=== PATIENT | female | born 1950 ===

== ENCOUNTER 2018-07-12 22:41 | Inpatient (IN) | payer OTHER ==
--- NOTE | 2018-07-12 23:03 | ED ---
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 Son is speaking for pt. Pt understands Cypriot. Around 2099, pt and her son went for a walk. They returned home, and she stated she didn't feel well. Associated sx: palpitations, dyspnea. Denies SOB, nausea, diaphoresis. According to the son, last January, pt didnt feel well and the next day, she had a TIA. Pt recently moved to [place]. She has not been diagnosed with an arrhythmia prior, aside from an episode in [place], but was not diagnosed. Pert PMHx: HTN, TIA. Medications discussed. Took baby aspirin today. - History of Current Complaint Chief Complaint: EDChestPainROMI Time Seen by Provider: 07/12/18 22:53 Hx Obtained From: Patient, Family/Mortgage Funder - son Onset/Duration: Started Hours Ago, Still Present Timing: Constant Initial Severity: Moderate Current Severity: Moderate Pain Intensity: 5 Pain Scale Used: 0-10 Numeric Associated Signs and Symptoms: Positive: Palpitations, Other: - pos: dyspnea. Negative: Shortness of Breath, Diaphoresis, Nausea - Allergy/Home Medications Allergies/Adverse Reactions: Allergies Allergy/AdvReac Type Severity Reaction Status Date / Time metronidazole [From Flagyl] Allergy Unknown Verified 07/12/18 22:59 Reaction Details niacin Allergy Flushing Verified 07/12/18 22:59 PMH/Surg Hx/FS Hx/Imm Hx Previously Healthy: No Cardiovascular History: Reports: Hx Hypertension Neurological History: Reports: Hx Transient Ischemic Attacks (TIA) Infectious Disease History: No Infectious Disease History: Denies: Traveled Outside the [place] in Last 30 Days - Social History Occupation: Retired Lives: With Family Review of Systems Negative: Skin Diaphoresis Positive: Palpitations, Chest Pain Positive: Other - pos: dyspnea. Negative: Shortness Of Breath Negative: Nausea All Other Systems Reviewed And Are Negative: Yes Physical Exam - Summary Physical Exam Summary: VITAL SIGNS: Reviewed. GENERAL: Patient is a well-developed and nourished MALE who is lying comfortable in the stretcher. Patient is not in any acute respiratory distress. HEAD AND FACE: No signs of trauma. No ecchymosis, hematomas or skull depressions. No sinus tenderness. EYES: PERRLA, EOMI x 2, No injected conjunctiva, no nystagmus. EARS: Hearing grossly intact. Ear canals and tympanic membranes are within normal limits. MOUTH: Oropharynx within normal limits. NECK: Supple, trachea is midline, no adenopathy, no JVD, no carotid bruit, no c- spine tenderness, neck with full ROM. CHEST: Symmetric, no tenderness at palpation LUNGS: Clear to auscultation bilaterally. No wheezing or crackles. CVS: Irregular tachycardia, S1 and S2 present, no murmurs or gallops appreciated. ABDOMEN: Soft, non-tender. No signs of distention. No rebound no guarding, and no masses palpated. Bowel sounds are normal. EXTREMITIES: FROM in all major joints, no edema, no cyanosis or clubbing. NEURO: Alert and oriented x 3. No acute neurological deficits. Speech is normal and follows commands. SKIN: Dry and warm Triage Information Reviewed: Yes Vital Signs On Initial Exam: Initial Vitals Temp Pulse Resp BP Pulse Ox 97.3 F 102 16 141/85 97 07/12/18 22:54 07/12/18 22:54 07/12/18 22:54 07/12/18 22:54 07/12/18 22:54 Vital Signs Reviewed: Yes Diagnostics - Vital Signs Vital Signs Temp Pulse Resp BP Pulse Ox 07/12/18 22:54 97.3 F 102 16 141/85 97 - Laboratory Result Diagrams: 07/12/18 23:28 07/12/18 23:29 Lab Statement: Any lab studies that have been ordered have been reviewed, and results considered in the medical decision making process. - Radiology CXR Xray Interpretation: No Acute Changes - No acute process. Pending official report. Radiology Interpretation Completed By: ED Physician - EKG 2247 Cardiac Rate: Other Rate - 122bpm EKG Rhythm: Atrial Fibrillation EKG Interpretation: LVH strain, diffuse ST depression EKG Comparison: Other - No prev available for comparison. 01:49 Cardiac Rate: NL - 72 bpm EKG Rhythm: Sinus Rhythm EKG Interpretation: 1st degree AV block, Q-waves in V1, V2. 00:09 Cardiac Rate: NL - 72 bpm EKG Rhythm: Sinus Rhythm EKG Interpretation: 1st degree AV block, Q-waves in V1, V2. Re-Evaluation - Re-Evaluation 1 Re-Evaluation Time: 00:05 Change: Improved Comment: Pt is in sinus rhythm. Chest Pain Course/Dx - Course Course Of Treatment: Pt is a 67 y/o F with PMHx: TIA, HTN, presenting with CP onset approx two hours ago, palpitations, dypsnea. Son is speaking for pt. Pt understands Cypriot. Medications discussed. Took baby aspirin today. Initial EKG shows afib. Repeat EKG at 00:09 shows SR at 72bpm, first degree AV block, Q- waves in V1, V2. CXR is unremarkable. Hospitalist paged at 0012. Consulted with Dr. House, hospitalist, who will admit pt. - Diagnoses Provider Diagnoses: Chest pain, Paroxysmal A-fib - Provider Notifications Discussed Care Of Patient With: Meaghan House - hospitalist Time Discussed With Above Provider: 01:57 Instructed by Provider To: Admit As Inpatient Discharge - Sign-Out/Discharge Documenting (check all that apply): Patient Departure - ADM - Discharge Plan Disposition: ADMITTED TO [facility] Referrals: Karlene Bush MD [Primary Care Provider] - - Attestation Statements Document Initiated by Scribe: Yes Documenting Scribe: Jeff Garza Provider For Whom Scribe is Documenting (Include Credential): Dr. Chelly Murphy MD Scribe Attestation: I, Jeff Garza, scribed for Dr. Chelly Murphy MD on 07/13/18 at 0157.
[2018-07-12] MEDS ORDERED: Metoprolol Tartrate IV* 1 MG/ML 5 ML VIAL IV PRN (23:21)
--- OUTSIDE RECORDS SUMMARY | 2018-07-12 23:28 | XMS REPORT ---
:1950 External Reference #:[id number] Author Organization [employer] Address [address] [place] [address] [place] [address] Phone [phone] Care Team Providers Name Role Phone Karlene Bush MD Primary Care Physician Unavailable Payers Type Date Identification Numbers Payment Provider Subscriber Commercial Policy Number: [id number] Denis Oscar PayID: [id number] [address] [place] [phone] Problems Date Description Provider Status Onset: 01/12/2018 History of ischemic stroke without Karlene Bush M.D. Active residual deficits Onset: 06/15/2018 Essential hypertension Karlene Bush M.D. Active Onset: 06/15/2018 Type 2 diabetes mellitus Karlene Bush M.D. Active Onset: 06/15/2018 Hyperlipidemia Karlene Bush M.D. Active Family History Date Family Member(s) Problem(s) Comments Children 4 Siblings 7 DM Social History Type Date Description Comments Marital Status Lives With Family Occupation Homemaker Cigarette Use Never Smoked Cigarettes Smoking Patient has never smoked Allergies, Adverse Reactions, Alerts Date Description Reaction Status Severity Comments 06/15/2018 Niacin hypertension active 06/15/2018 Flagyl unknown active 06/15/2018 Metformin muscle aches active Medications Medication Date Status Form Strength Qnty SIG Indications Ordering Provider Nifedipine 06/15 Active Capsules 20mg 180ca take one ps capsule bid Halie Bush Metformin HCL 06/15 Active Tablets ER 500mg 90tab 1 by mouth Karlene ER (Osm) 24HR s every day Halie Bush Shingrix 06/15 Active Suspension 50mcg 1unit intramuscular Karlene /2017 Rec s x 1 then florentin Bush in 4 M.D. months Losartan Active Tablets 50-12.5mg 90tab 1 by mouth Karlene Potassium/Hyd /0000 s every am and audelia Bushlorothiaz 1/2 in the M.D. tanesha evening Aspirin 81 Active Chewtabs 81mg 1 by mouth Unknown Low Dose /0000 every day Atorvastatin Active Tablets 80mg 90tab 1 by mouth Karlene Calcium /0000 s every day Halie Bush Plavix Active Tablets 75mg 90tab 1 by mouth Karlene /0000 s every day Halie Bush Calcium Active Tablets 500-125mg 1 by mouth Unknown 500/Vitamin D /0000 -Unit twice a day Metformin HCL Hx Tablets 250mg 1 by mouth a Unknown / day - 06/15 Vital Signs Date Vital Result Comment 06/15/2018 Height 57 inches 4'9" Weight 132.00 lb Heart Rate 74 /min BP Systolic Sitting 124 mmHg BP Diastolic Sitting 78 mmHg O2 % BldC Oximetry 95 % BMI (Body Mass Index) 28.6 kg/m2 Results Description No Information Procedures Description No Information Plan of Care Future Appointment(s):10/25/2018 8:30 am - Karlene Bush M.D. at [facility] Internal Medicine - Xbfdztpep81/11/2018 - Karlene Bush M.D.E11.9 Type 2 diabetes mellitus without complicationsNew Labs:Urine Microalbumin RandomComments:You are meeting goal for blood sugar control. Changes to medications are indicated. A yearly nutrition visit is available to all diabetics.Referral:Giovanni Mistry MD, OphthalmologyFollow up:4 monthsRecommendations:See your plasma processing technician every year. It is OK to go every 2 years if he finds no retinal damage from diabetes. Ask your plasma processing technician to communicate his findings to us. See a quality control expert every 6 months if you have numbness in your feet or a history of foot ulcers.Z86.73 Prsnl hx of TIA (TIA), and cereb infrc w/o resid deficitsReferral:Sylvie Pride MD, [id number] Essential (primary) hypertensionNew Labs:Comp Metabolic Panel
--- OUTSIDE RECORDS SUMMARY | 2018-07-12 23:28 | XMS REPORT ---
:1950 External Reference #:[id number] Author Organization [employer] Address [address] [place] [place] [address] Phone [phone] Care Team Providers Name Role Phone Karlene Bush MD Primary Care Physician Unavailable Payers Type Date Identification Numbers Payment Provider Subscriber Commercial Policy Number: [id number] Denis Oscar PayID: [id number] [address] [place] [phone] Problems Date Description Provider Status Onset: 01/12/2018 [...] Description No Information Plan of Care Future Appointment(s):10/18/2018 8:10 am - Karlene Bush M.D. at [facility] Internal Medicine - Ecfxschrv89/11/2018 - Karlene Bush M.D.E11.9 Type 2 diabetes mellitus without complicationsNew Labs:Urine Microalbumin RandomComments:You are meeting goal for blood sugar control. Changes to medications are indicated. A yearly nutrition visit is available to all diabetics.Referral:Giovanni Mistry MD, OphthalmologyFollow up:4 monthsRecommendations:See your shore working supervisor every year. It is OK to go every 2 years if he finds no retinal damage from diabetes. Ask your shore working supervisor to communicate his findings to us. See a transmissions systems operator every 6 months if you have numbness in your feet or a history of foot ulcers.Z86.73 Prsnl hx of TIA (TIA), and cereb infrc w/o resid deficitsReferral:Sylvie Pride MD, [id number] Essential (primary) hypertensionNew Labs:Comp Metabolic Panel
--- OUTSIDE RECORDS SUMMARY | 2018-07-12 23:28 | XMS REPORT ---
:1950 External Reference #:[id number] Author Organization [employer] Address [address] [place] [address] Phone [phone] Care Team Providers Name Role Phone Karlene Bush MD Primary Care Physician Unavailable Payers Type Date Identification Numbers Payment Provider Subscriber Commercial Policy Number: [id number] Denis Oscar PayID: [id number] [address] [place] [phone] Problems Date Description Provider Status Onset: 01/12/2018 [...] Description No Information Plan of Care Future Appointment(s):09/22/2018 8:30 am - Karlene Bush M.D. at [facility] Internal Medicine - Xpzsgzlee48/11/2018 - Karlene Bush M.D.E11.9 Type 2 diabetes mellitus without complicationsNew Labs:Urine Microalbumin RandomComments:You are meeting goal for blood sugar control. Changes to medications are indicated. A yearly nutrition visit is available to all diabetics.Referral:Giovanni Mistry MD, OphthalmologyFollow up:4 monthsRecommendations:See your intake specialist every year. It is OK to go every 2 years if he finds no retinal damage from diabetes. Ask your intake specialist to communicate his findings to us. See a electrician apprentice powerhouse every 6 months if you have numbness in your feet or a history of foot ulcers.Z86.73 Prsnl hx of TIA (TIA), and cereb infrc w/o resid deficitsReferral:Sylvie Pride MD, [id number] Essential (primary) hypertensionNew Labs:Comp Metabolic Panel
[2018-07-12 23:40] LABS: ABS Basophils 0.1 10^3/ul (0-0.2); ABS Eosinophils 0.4 10^3/ul (0-0.6); ABS Lymphocytes 3.5 10^3/ul (1.0-4.8); ABS Monocytes 0.6 10^3/ul (0-0.8); ABS Neutrophils 4.1 10^3/ul (1.5-7.7); ABS Nucleated RBC 0 10^3/ul; Eosinophil % 4.9 % (0-6); Hematocrit 39 % (35-47); Hemoglobin 13.4 g/dl (12.0-16.0); Lymphocyte % 40.7 % (25-47); Mean Corpuscular HGB Conc 34 g/dl (31-36); Mean Corpuscular Hemoglobin 30 pg (27-31); Mean Corpuscular Volume 87 fL (80-97); Mean Platelet Volume 9.3 um3 (7.4-10.4); Nucleated Red Blood Cells % 0.1; Platelet Count 287 10^3/ul (150-450); Red Blood Count 4.49 10^6/ul (4.00-5.40); Red Cell Distribution Width 14 % (10.5-15); White Blood Count 8.7 10^3/ul (3.5-10.8)
[2018-07-12] MEDS: Aspirin 81 mg CHEW TAB* 81 MG TAB.CHEW PO SCH (23:41)
[2018-07-12 23:48] LABS: INR 0.99 (0.77-1.02)
[2018-07-12 23:54] LABS: EGFR Non-African American 84.6 (>60)
[2018-07-13] MEDS ORDERED: Potassium Chloride LIQUID* 20 MEQ PACKET PO ONE (00:07)
[2018-07-13] MEDS ORDERED: Dextrose 50% Syringe 50 ML* 25 GM/50 ML SYRINGE IV PUSH PRN (04:33)
[2018-07-13 06:37] LABS: ABS Basophils 0.1 10^3/ul (0-0.2); ABS Eosinophils 0.3 10^3/ul (0-0.6); ABS Lymphocytes 3.2 10^3/ul (1.0-4.8); ABS Monocytes 0.6 10^3/ul (0-0.8); ABS Neutrophils 4.6 10^3/ul (1.5-7.7); ABS Nucleated RBC 0 10^3/ul; Eosinophil % 3.9 % (0-6); Hematocrit 35 % (35-47); Lymphocyte % 36.4 % (25-47); Mean Corpuscular HGB Conc 34 g/dl (31-36); Mean Corpuscular Hemoglobin 30 pg (27-31); Mean Corpuscular Volume 87 fL (80-97); Mean Platelet Volume 9.4 um3 (7.4-10.4); Nucleated Red Blood Cells % 0.1; Platelet Count 264 10^3/ul (150-450); Red Blood Count 4.08 10^6/ul (4.00-5.40); Red Cell Distribution Width 14 % (10.5-15); White Blood Count 8.8 10^3/ul (3.5-10.8)
--- NOTE | 2018-07-13 07:54 | RAD ---
HISTORY: CP COMPARISONS: None VIEWS: 1: frontal AP view of the chest at 11:35 PM FINDINGS: LINES AND TUBES: None. CARDIOMEDIASTINAL SILHOUETTE: The aorta is tortuous. The cardiomediastinal silhouette is otherwise normal for portable technique. PLEURA: The costophrenic angles are sharp. No pleural abnormalities are noted. LUNG PARENCHYMA: The lungs are clear. ABDOMEN: The upper abdomen is clear. There is no subphrenic gas. BONES AND SOFT TISSUES: Degenerative changes are noted of the right shoulder. IMPRESSION: NO ACTIVE CARDIOPULMONARY DISEASE. R0
--- NOTE | 2018-07-13 08:15 | ADMNOTE ---
Subjective Date of Service: 07/13/18 Interval History: hpi this is a 67 yr old female with hx of paf on asa/plavix presented to er with c/o of palpiation sudden onset with associated sob at 945 pm. pt was found to be in rapid a fib with flipped t wave due to fast hr---> got lopressor 5 mg iv times one ---> converted to sinus/ flipped t disappeared. pt was found later on the moniter multiples times to be in asystole mode but she was talking to me. pt was later found to have progressive pulse on the moniter which also documented asystole while she was alive and talking ---> cardio called in am no further lopressor or cardiazem ordered sbp wnl she recently moved from [facility] had a cardiac dr in [facility] but only has a pcp here after relocation ( no cardio locally ) Family History: Findings - both grand parents + htn Social History: Findings - no etoh no cig walks with a andrey comes from home lives with family Past Medical History: Findings - phx htn type ii dm on metformin ( not sure dose or er or not ) paf hyperlipidemia pshx marysol/oob b/l knee orif 2014 Review of Systems - Measurements Intake and Output: Intake and Output Last 24 Hours 07/11/18 07/12/18 07/13/18 07/14/18 06:59 06:59 06:59 06:59 Intake Total 0 Output Total 0 Balance 0 Weight 129 lb 4.8 oz Intake: Oral 0 Output: Urine 0 Other: # Bowel Movements 0 - Review of Systems General Comments: 12 review of systems reviewed with her pls refer to hpi for details Constitutional Symptoms: Positive: Weight Loss Objective Active Medications: Aspirin (Aspirin 81 Mg Chew Tab*) 162 mg PO DAILY GIANNI Last Admin: 07/12/18 23:41 Dose: 162 mg Dextrose (D50w Syringe 50 Ml*) 12.5 gm IV PUSH .FOR FS < 60 - SS PRN PRN Reason: FS < 60 Insulin Human Lispro (Humalog*) 0 units SUBCUT ACHS GIANNI; Protocol Metoprolol Tartrate (Lopressor Iv*) 5 mg IV Q5M PRN PRN Reason: BLOOD PRESSURE Last Admin: 07/12/18 23:41 Dose: 5 mg Vital Signs - 8 hr 07/13/18 07/13/18 07/13/18 00:12 00:22 00:39 Temperature Pulse Rate 75 75 73 Respiratory 19 18 18 Rate Blood Pressure 118/81 129/88 133/79 (mmHg) O2 Sat by Pulse 94 96 96 Oximetry 07/13/18 07/13/18 07/13/18 00:54 01:00 01:08 Temperature Pulse Rate 75 75 71 Respiratory 23 20 18 Rate Blood Pressure 113/70 122/67 (mmHg) O2 Sat by Pulse 96 96 96 Oximetry 07/13/18 07/13/18 07/13/18 01:23 01:38 01:54 Temperature Pulse Rate 71 70 67 Respiratory 14 19 16 Rate Blood Pressure 117/73 124/72 118/75 (mmHg) O2 Sat by Pulse 97 96 95 Oximetry 07/13/18 07/13/18 07/13/18 02:00 02:09 02:24 Temperature Pulse Rate 69 63 63 Respiratory 17 16 14 Rate Blood Pressure 126/65 118/68 (mmHg) O2 Sat by Pulse 96 95 97 Oximetry 07/13/18 07/13/18 07/13/18 02:39 02:54 03:00 Temperature Pulse Rate 67 65 66 Respiratory 17 15 16 Rate Blood Pressure 121/72 124/67 (mmHg) O2 Sat by Pulse 96 96 95 Oximetry 07/13/18 07/13/18 07/13/18 03:09 03:24 03:30 Temperature Pulse Rate 67 75 58 Respiratory 16 19 15 Rate Blood Pressure 131/77 143/73 123/64 (mmHg) O2 Sat by Pulse 96 97 97 Oximetry 07/13/18 07/13/18 07/13/18 03:39 03:49 03:52 Temperature Pulse Rate 66 60 62 Respiratory 16 19 16 Rate Blood Pressure 134/74 124/79 112/73 (mmHg) O2 Sat by Pulse 97 97 97 Oximetry 07/13/18 07/13/18 07/13/18 03:55 03:56 03:57 Temperature 98.1 F Pulse Rate 74 55 66 Respiratory 14 16 19 Rate Blood Pressure 79/58 139/55 128/88 (mmHg) O2 Sat by Pulse 97 99 96 Oximetry 07/13/18 07/13/18 07/13/18 04:00 04:09 04:10 Temperature 98.6 F Pulse Rate 64 60 70 Respiratory 15 18 16 Rate Blood Pressure 132/77 123/64 (mmHg) O2 Sat by Pulse 98 96 96 Oximetry 07/13/18 07/13/18 04:24 04:39 Temperature Pulse Rate 66 67 Respiratory 22 10 Rate Blood Pressure 133/72 134/99 (mmHg) O2 Sat by Pulse 96 97 Oximetry Oxygen Devices in Use Now: None Eyes: No Scleral Icterus, PERRLA Ears/Nose/Mouth/Throat: NL Teeth, Lips, Gums, Clear Oropharnyx, Mucous Membranes Moist Neck: NL Appearance and Movements; NL JVP, Trachea Midline, No Thyroid Enlargement, Masses Respiratory: Symmetrical Chest Expansion and Respiratory Effort, Clear to Auscultation Cardiovascular: - - s1 s2 no murmur Abdominal: NL Sounds; No Tenderness; No Distention Extremities: No Edema - able to raise ue and le b/l against gravity Skin: No Rash or Ulcers Neurological: Alert and Oriented x 3, NL Sensation, NL Muscle Strength and Tone Result Diagrams: 07/13/18 05:58 07/13/18 05:58 Assess/Plan/Problems-Billing Assessment: 67 yr old af with hx of paf on asa/plavix only presented to er with sudden onset of palpitation/sob starting at 945 pm. pt was found to be in rapid a fib - --> got lopressor 5 mg iv times one from er converted to ns with more frequecny of pauses ---> not on any b blokcer or calcium channel margaret prior to admission ---> no local cardio avaiable - Patient Problems (1) Rapid atrial fibrillation Current Visit: Yes Status: Acute Code(s): I48.91 - UNSPECIFIED ATRIAL FIBRILLATION SNOMED Code(s): 211129744 Comment: got one dose of lopresor converted to ns with more frequent pauses with hr around 60s tele with irene no further lopressor or cardizem ordered echo cardio consult ? anticoag with anticoag she is below age 69 await for cardio eval (2) HTN (hypertension) Current Visit: Yes Status: Acute Code(s): I10 - ESSENTIAL (PRIMARY) HYPERTENSION SNOMED Code(s): 80692372 Comment: sbp wnl on arb ---> told her to ask family to bring the meds since she knows the med but not the dose (3) Type II diabetes mellitus Current Visit: Yes Status: Acute Comment: on metaformin but not sure the dose dm diet ck a1c insulin ss for now while waiting for family to bring in dose of metformin (4) Hyperlipemia Current Visit: Yes Status: Acute Code(s): E78.5 - HYPERLIPIDEMIA, UNSPECIFIED SNOMED Code(s): 29512649 Comment: lft wnl ck fasting lipid
[2018-07-13] MEDS: Insulin LISPRO* 1 UNITS UNIT SUBCUT SCH ×4 (09:28→21:32)
[2018-07-13] MEDS: Aspirin 81 mg CHEW TAB* 81 MG TAB.CHEW PO SCH (09:29)
[2018-07-13] MEDS ORDERED: ceFAZolin 2 GM PREMIX in ORs 2 GM/50 ML BAG IVPB ONE (13:08)
[2018-07-13] MEDS ORDERED: ceFAZolin 1 GM/10 ML flush(*) SYRINGE for pocket flush (cardiology) FLUSH ONE (13:08)
[2018-07-13] MEDS ORDERED: Diazepam TAB(*) 5 MG PO ONE (13:08)
[2018-07-13] MEDS: NS 0.9% 1000 ML* 1,000 ML IV SCH (14:26)
--- NOTE | 2018-07-13 14:44 | PN ---
Hospitalist Progress Note Date of Service: 07/13/18 Patient seen and examined this morning. She is a 67 year old lady who recently moved to [place] from [place], [place] and has history of paroxysmal afib and 2 CVAs on asa/plavix. She presented with chest discomfort and palpitations and was found to be in afib with rvr. She received metoprolol 5mg IV x 1 in the ED, which broke the afib, but resulted in many sinus pauses. Her son, who is a physician, relates to me that she had pauses in response to beta blockers in the past. She feels okay this morning. ACS has been ruled out, but I suspect some sick sinus syndrome and have consulted Dr. Guan for consideration of a pacer. She agrees to this and he is arranging. For now, no BB or CCB, and pads on.
--- NOTE | 2018-07-13 15:02 | ECHO ---
Patient: MICHELLE PEARL [facility] Rec#: [id number] : 1950 Date: 07/13/2018 Age: 67y Height: 150 cm / 59.1 in Weight: 59 kg / 130.0 lbs Sex: F BSA: 1.54 Room#: [facility] Admit Date#: 07/13/2018 Type: Inpatient Referring: Loy Guan MD Reading: Loy Guan MD Locker Room Supervisor: Sylvie Moore,DANIELCS,RDMS CC: MYRNA BARBOUR Transthoracic Echocardiogram Indication: AFIB BP: 156/94 HR: 62 Rhythm: NSR Findings History: AFIB, HLD, HTN, DM Technical Comments: The study quality is good. Left Ventricle: The left ventricular chamber size is normal. Basal interventricular septum shows moderate thickening. Global left ventricular wall motion and contractility are within normal limits. There is normal left ventricular systolic function. The estimated ejection fraction is 55-60%. There is no consistent Doppler evidence of clinically significant diastolic dysfunction. Left Atrium: The left atrium is mild to moderately dilated. Right Ventricle: The right ventricular chamber size and systolic function are within normal limits. Right Atrium: The right atrial cavity size is normal. Aortic Valve: The aortic valve is trileaflet. The aortic valve leaflets are mildly thickened. There is aortic annular calcification. There is trace to mild aortic regurgitation. There is no evidence of aortic stenosis. Mitral Valve: Moderate mitral annular calcification present. The mitral valve leaflets are mildly thickened. There is trace to mild mitral regurgitation. There is no evidence of mitral stenosis. Tricuspid Valve: The tricuspid valve leaflets are normal. There is mild to moderate tricuspid regurgitation. No pulmonary hypertension is noted. Pulmonic Valve: There is no evidence of pulmonic valve thickening. There is a trace pulmonic regurgitation. Pericardium: There is no significant pericardial effusion. Aorta: The aortic root appears normal. There is no dilatation of the aortic arch. Pulmonary Artery: The main pulmonary artery is not well visualized. Venous: The inferior vena cava appears normal in size. There is a greater than 50% respiratory change in the inferior vena cava dimension. Summary: There was not any prior study for comparison. Conclusions Global left ventricular wall motion and contractility are within normal limits. There is normal left ventricular systolic function. The estimated ejection fraction is 55-60%. The left atrium is mild to moderately dilated. There is trace to mild aortic regurgitation. There is no evidence of aortic stenosis. There is trace to mild mitral regurgitation. There is mild to moderate tricuspid regurgitation. No pulmonary hypertension is noted. There is no significant pericardial effusion. Measurements Name Value Normal Range RVIDd (AP) 2D 2.2 cm (0.9 - 2.6) RVDdMajor (2D) 2.3 cm (2.2 - 4.4) RAd ISD 4CH 4 cm (3.4 - 4.9) RA (A4C)W 3.1 cm (2.9 - 4.6) IVSd (2D) 1.4 cm (0.6 - 1) LVPWd (2D) 0.9 cm (0.6 - 1) LVIDd (2D) 3.8 cm (3.6 - 5.4) LVIDs (2D) 2.4 cm - LV FS (2D) 36 % (25 - 45) Aortic Annulus 2 cm (1.4 - 2.6) Ao root diameter (2D) 2.6 cm (2.1 - 3.5) Ascending Ao 2.4 cm (2.1 - 3.4) Aortic arch 2.5 cm (1.8 - 3.4) LA dimension (AP) 2D 3.5 cm (2.3 - 3.8) LAd ISD 4CH 4.8 cm (2.9 - 5.3) LA ISD 4CH W 4.3 cm (2.5 - 4.5) Name Value Normal Range LA ESV BP (A/L) index 37 ml/m2 - Name Value Normal Range MV E-wave Vmax 0.9 m/sec - MV deceleration time 144 msec - MV A-wave Vmax 0.7 m/sec - MV E:A ratio 1.3 ratio - LV septal e' Vmax 0.07 m/sec - LV lateral e' Vmax 0.06 m/sec - LV E:e' septal ratio 13 ratio - LV E:e' lateral ratio 14 ratio - Name Value Normal Range AV Vmax 1.4 m/sec - AV VTI 32 cm - AV peak gradient 8 mmHg - AV mean gradient 4 mmHg - LVOT Vmax 1 m/sec - LVOT VTI 24 cm - LVOT peak gradient 4 mmHg - LVOT mean gradient 2 mmHg - CISCO Vmax 0.4 m/sec - Name Value Normal Range TR Vmax 2.6 m/sec - TR peak gradient 27 mmHg - RAP 3 mmHg - RVSP 30 mmHg - IVC diameter 1.4 cm -
[2018-07-13] MEDS ORDERED: Lidocaine 1% INJ* 10 MG/ML 30 ML SDV ONE (15:56)
[2018-07-13] MEDS ORDERED: fentaNYL* 50 MCG/ML 2 ML VIAL (100 MCG VIAL) ONE (16:02)
[2018-07-13] MEDS ORDERED: Midazolam* 1 MG/ML 5 ML VIAL (5 MG) ONE (16:02)
[2018-07-13] MEDS ORDERED: Iohexol 300* (CONTRAST) 10 ML SDV ONE (16:37)
[2018-07-13] MEDS ORDERED: oxyCODONE/Acetamin 5/325 MG* TAB PO PRN (17:10)
[2018-07-13] MEDS ORDERED: ceFAZolin 1 GM VIAL(*) 1 GM in NS 0.9% 50 ML* 50 ML IVPB SCH (18:00)
--- NOTE | 2018-07-13 21:29 | CONS ---
CARDIOLOGY CONSULTATION: DATE OF CONSULT: 07/13/18 INDICATION FOR CONSULT: Sick sinus syndrome, atrial fibrillation. HISTORY OF PRESENT ILLNESS: The patient is a 67-year-old female from [place], who has a history of paroxysmal atrial fibrillation. The patient's son is a physician and was able to give me most of the history. The patient's son states that the patient had a paroxysmal atrial fibrillation. She was visiting in [facility] and was having lightheadedness. At that time, her heart rate was down to 40 beats per minute. The decision at that time was to have her stop her beta blockers. 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 The patient had been doing well until last night when she was out walking and suddenly became very uncomfortable. She said she felt palpitations and was having difficulty walking. She just felt fatigued. The patient was able to get back to the house. Her son took her blood pressure. Her blood pressure was stable, but her heart rate was 120 and irregular. The patient was brought to the emergency room. On arrival to the emergency room, she was in atrial fibrillation with a heart rate of 120. The patient was given IV Lopressor 5 mg, subsequently she broke to normal sinus rhythm; however, the patient was having significant bradycardia and multiple episodes of 5- second pauses. The patient states she felt poor vision when she had the 5-second pauses. The patient denies any true episodes of syncope. She denies any chest pain. She denies any orthopnea. She denies any other episodes of palpitations. OUTPATIENT MEDICATIONS: 1. Atorvastatin 80 mg a day. 2. Metformin 500 mg q.h.s. 3. Plavix 75 mg a day. 4. Aspirin 81 mg a day. 5. Nifedipine ER 30 mg a day. 6. Losartan 50/12.5 mg one-half tab daily. 7. Losartan/hydrochlorothiazide 50 mg/12.5 mg 1 tablet in the morning. ALLERGIES: To METRONIDAZOLE and NIACIN. FAMILY HISTORY: Not obtained. SOCIAL HISTORY: She is . She was living down in [place], but is now going to be moving to this area to be with her son. No tobacco or alcohol use. REVIEW OF SYSTEMS: Negative for fevers and chills. Negative for changes in bowel or bladder habits. Negative for changes in her weight. Other 12-point review is unremarkable. PHYSICAL EXAM: Height is 4 feet 11 inches, weight is 129 pounds, temperature 97.8, heart rate 31, respiratory rate is 16, oxygen saturation 98% on room air, blood pressure 129/57. Sclerae anicteric. Oropharynx is pink without erythema. Carotids are 2+ without bruits. JVD is normal. Thyroid is normal. Cardiac Exam: S1, S2 without any murmurs, rubs, or gallops. Lungs are clear to auscultation bilaterally. There is no dullness to percussion. Abdomen is soft , nontender, nondistended with normoactive bowel sounds. Extremities show no edema. She has 2+ pulses throughout. The patient is awake, alert, and oriented. She moves all 4 extremities equally. She does have some weakness in her left arm from her CVA. LABORATORY DATA: CBC within normal limits. Chemistries within normal limits. BUN 14, creatinine 0.6. Troponins are negative x3. Total cholesterol 78, LDL cholesterol 14. AST and ALT are normal. IMPRESSION AND PLAN: This is a 67-year-old female with a history of paroxysmal atrial fibrillation, who was admitted to the hospital with atrial fibrillation and rapid ventricular response. After one dose of IV metoprolol, the patient converted to normal sinus rhythm, but had significant pauses up to 5 seconds. The patient clearly has sick sinus syndrome. It is my recommendation that the patient undergo dual-chamber pacemaker implantation for maximization of medical therapy. The risks and benefits were described in detail to the patient and her son and they are willing to proceed. After the device is in, the patient will be restarted on her beta blockers. At some point, the patient would probably benefit from long-term full anticoagulation because of her history of cerebrovascular accident and paroxysmal atrial fibrillation. [id number]/[facility] #: [id number] [facility]ITALTacho
[2018-07-13] MEDS: Metoprolol Tartrate TAB* 25 MG PO SCH (21:32)
[2018-07-14] MEDS: [UNRECOGNIZED DRUG - OTHER] IVPB SCH ×2 (00:49→09:15)
[2018-07-14] MEDS: Acetaminophen TAB* 325 MG PO PRN ×2 (02:04→10:19)
[2018-07-14] MEDS: NS 0.9% 1000 ML* 1,000 ML IV SCH (04:58)
--- NOTE | 2018-07-14 08:10 | RAD ---
Indication: Pacemaker placement. Single frontal view of the chest performed at 1853 hours was reviewed. Comparison is made with previous exam dated July 12, 2018. No mediastinal shift is noted. Heart is of normal size and configuration. Lung fitch appear clear. Pacemaker leads are in place. No pneumothorax is noted. IMPRESSION: NO ACTIVE CARDIOPULMONARY DISEASE IS NOTED. R1
[2018-07-14] MEDS: Insulin LISPRO* 1 UNITS UNIT SUBCUT SCH ×2 (09:10→12:30)
[2018-07-14] MEDS: Aspirin 81 mg CHEW TAB* 81 MG TAB.CHEW PO SCH (09:15)
[2018-07-14] MEDS: Metoprolol Tartrate TAB* 25 MG PO SCH (09:16)
--- NOTE | 2018-07-14 09:33 | RAD ---
HISTORY: S/P Device Implant COMPARISONS: July 13, 2018 VIEWS: 4: Frontal dual-energy and lateral views of the chest. FINDINGS: CARDIOMEDIASTINAL SILHOUETTE: The cardiomediastinal silhouette is normal. LO: The lo are normal. PLEURA: The costophrenic angles are sharp. No pleural abnormalities are noted. LUNG PARENCHYMA: The lungs are clear. ABDOMEN: The upper abdomen is clear. There is no subphrenic gas. BONES AND SOFT TISSUES: No bone or soft tissue abnormalities are noted. OTHER: A left-sided dual-lead pacemaker is noted. IMPRESSION: NO ACTIVE CARDIOPULMONARY DISEASE.
[2018-07-14] MEDS ORDERED: Metoprolol Succinate XL TAB* 25 MG PO ONE (10:00)
[2018-07-14] MEDS ORDERED: Diltiazem CD CAP* 120 MG PO SCH (10:00)
[2018-07-14] MEDS ORDERED: Losartan TAB* 25 MG PO SCH (10:30)
--- NOTE | 2018-07-14 10:46 | OP ---
DATE OF OPERATION: 07/13/18 - ROOM #443 DATE OF : 48 SURGEON: Loy Guan MD ANESTHESIA: Local anesthesia with conscious sedation. PRE-OP DIAGNOSES: 1. Sick sinus syndrome. 2. Atrial fibrillation. POST-OP DIAGNOSES: 1. Sick sinus syndrome. 2. Atrial fibrillation. OPERATIVE PROCEDURE: Dual chamber pacemaker implantation. ESTIMATED BLOOD LOSS: Nil. COMPLICATIONS: None. INDICATIONS: The patient is a 67-year-old female with a history of paroxysmal atrial fibrillation, who came to the emergency room with atrial fibrillation with rapid ventricular response. She was given 1 dose of IV Lopressor. She converted to normal sinus rhythm but subsequently had episodes of asystole of up to 5 seconds. She had multiple episodes of these. Dual chamber pacemaker was recommended. DESCRIPTION OF PROCEDURE: The patient was brought to the operating room in a fasting state. Informed consent had been obtained prior to the procedure. All labs had been reviewed. The patient was placed supine on the procedure table. Her left deltopectoral area was cleaned and draped in the usual fashion. 1% lidocaine was used for local anesthesia. Under ultrasound guidance, the axillary vein was entered by a modified Seldinger technique and a guide-wire was placed. A second guidewire was placed under the same technique. A 3 cm incision was made in the pectoral area. Blunt dissection was carried down to the pectoral fascia and a small pocket was fashioned with a pacemaker. Over the first guidewire, a 7-Polish sheath introducer was placed through which a right ventricular lead was advanced through the RV apex. The right ventricular lead is a Medtronic model 5076, serial #[id number] at R-wave sensitivity of 15 impedance, 803 ohms, threshold 1 volt at 0.5 milliseconds. The ventricular lead was sutured to the pectoral fascia. Over the second guidewire, a 7-Polish sheath introducer was placed through which a right atrial lead was advanced to the high right atrium. The right atrial lead is a Medtronic model 5076, serial #[id number] at a P-wave sensitivity of 1.5, impedance of 521 ohms, threshold 2.8 volts at 0.5 milliseconds. By the end of the case, the atrial threshold was down to 1 volt at 0.5 milliseconds. The atrial lead was sutured to the pectoral fascia. A generator was attached appropriately to the atrial and ventricular lead. The generator is a [employer] model W1DR01, serial # [id number]. The device was placed in the pocket. The surgical incision was closed in 3 layers. [id number]/[facility] #: [id number] VEGA
[2018-07-14 12:16] VITALS: BP 156/73
[2018-07-14] MEDS ORDERED: Apixaban* 5 MG TAB PO SCH (16:00)
[2018-07-14] MEDS ORDERED: Metoprolol Succinate XL TAB* 50 MG PO SCH (21:00)
--- NOTE | 2018-07-15 08:37 | DS ---
CC: Dr. Bush; Dr. Guan; Dr. Mccullough* DISCHARGE SUMMARY: DATE OF ADMISSION: 07/13/18 DATE OF DISCHARGE: 07/14/18 PRINCIPAL DISCHARGE DIAGNOSES: 1. Tachybrady syndrome, status post pacemaker insertion. 2. Atrial fibrillation. SECONDARY DISCHARGE DIAGNOSES: 1. Hypertension. 2. History of cerebrovascular accident. 3. Diabetes. 4. Hyperlipidemia. PHYSICAL EXAM AT THE TIME OF DISCHARGE: Temperature 98.4, heart rate 63, respiratory rate 18, pulse ox 99% on room air, blood pressure 156/73. General: Alert, well-appearing female, in no distress. HEENT: Pupils equal, round, and reactive to light. Oral mucosa is moist. Neck: No JVP. No cervical adenopathy. Chest: She is now in regular rate and rhythm with no murmurs. She has a pacer on the left chest wall with a compressive dressing and her arm is in a sling. Her radial pulses are 2+ bilaterally. She has no hematoma. Abdomen: Soft, nontender, nondistended. Extremities: No edema. No rashes or ulcers. HOSPITAL COURSE BY PROBLEM: 1. Atrial fibrillation with rapid ventricular response. Ms. Oscar first presented to the hospital when she was feeling short of breath and having palpitations and her son palpated her pulse to be fast and irregular. In the emergency department, she was found to have a heart rate up to in the 140s and was in atrial fibrillation. She does have history of paroxysmal atrial fibrillation. She received metoprolol 5 mg IV in the emergency department, which broke the A-fib and brought her into a normal rate. She had received metoprolol 5 mg IV and then resolved and broke her to normal sinus rhythm with sinus pauses. She had not been on anticoagulation in the past but was on aspirin and Plavix only for a CVA. Given her elevated CHADs-VASC risk of 4, anticoagulation was discussed with her and her son and they agreed to begin it. She is being started on Eliquis tonight 07/14/[address] Powell. For rate control, she is being discharged on metoprolol 50 mg b.i.d. and Cardizem 120 mg daily. 2. Tachybrady syndrome. After she received metoprolol in the emergency department, she was found to have frequent sinus pauses up to 5 seconds and as often every minute on telemetry. At this point, Cardiology was consulted and recommended pacemaker insertion. Her son relates that he thinks she has had sinus pauses in the past in response to beta blockade. She underwent pacemaker insertion with Dr. Guan on 07/13/18 and tolerated the procedure well. Her postoperative course was uncomplicated and she received day and a half of antibiotics. She is being discharged on another day and a half of Keflex and I have made a followup appointment with her for Dr. Guan on 07/20. 3. Hypertension. Her antihypertensives were adjusted. Please see the medication reconciliation to allow for improved rate control. 4. Diabetes. She was discharged on her home dose of metformin. DISCHARGE MEDICATIONS: 1. Atorvastatin 80 mg daily. 2. Metformin 500 mg q.h.s. 3. Eliquis 5 mg b.i.d. 4. Diltiazem CD 120 mg daily. 5. Losartan 25 mg daily. 6. Metoprolol 50 mg b.i.d. 7. Keflex 250 mg t.i.d. for one and a half more days. DISCHARGE INSTRUCTIONS: Ms. Oscar is instructed to return to the emergency department should she develop any new or worsening symptoms. I have instructed her to follow up with Dr. Bush within one week. Please do not hesitate to call me with any questions or concerns about this admission or discharge. [id number]/[facility] #: [id number] MTDD
== END 2018-07-14 14:34 | disposition home or self-care (01) | DRG 171 ==
LOC: ED 22:41 → MEDTELE 07-13 03:14 → OBSVTOIN 07-13 10:00
PROVIDERS: ADMIT Internal Medicine; ATTEND Internal Medicine
PROC: 02H63JZ Insertion of Pacemaker Lead into Right Atrium, Percutaneous Approach (ICD-10-PCS; 2018-07-13)
PROC: 02HK3JZ Insertion of Pacemaker Lead into Right Ventricle, Percutaneous Approach (ICD-10-PCS; 2018-07-13)
PROC: 0JH606Z Insertion of Pacemaker, Dual Chamber into Chest Subcutaneous Tissue and Fascia, Open Approach (ICD-10-PCS; principal; 2018-07-13 13:00)
DX: I49.5 Sick sinus syndrome (principal); I46.9 Cardiac arrest, cause unspecified; I10 Essential (primary) hypertension; E11.9 Type 2 diabetes mellitus without complications; E78.5 Hyperlipidemia, unspecified; I48.0 Paroxysmal atrial fibrillation; Z79.84 Long term (current) use of oral hypoglycemic drugs; Z79.01 Long term (current) use of anticoagulants; Z82.49 Family history of ischemic heart disease and other diseases of the circulatory system; Z86.73 Personal history of transient ischemic attack (TIA), and cerebral infarction without residual deficits; Z90.710 Acquired absence of both cervix and uterus; Z88.8 Allergy status to other drugs, medicaments and biological substances; Z88.1 Allergy status to other antibiotic agents
CPT/HCPCS: 33208; 36415; 71045; 71046; 80048; 80053; 80061; 82550; 82553; 83036; 83605; 83735; 83880; 84436; 84439; 84443; 84484; 85025; 85610; 85730; 93005; 93306; 99156; 99157; 99284; A9270-GY; C1785; C1898; G0378; J0690; J2250; J3010; J3490